=== PATIENT | male | born 1990 | race Caucasian/White ===

== ENCOUNTER 2019-08-07 03:54 | Observation (INO) ==
[2019-08-07] MEDS ORDERED: Naloxone 0.4 MG/ML INJ IVP PRN (08:42)
[2019-08-07 11:06] LABS: Amphetamine Screen,Urine Positive ng/mL (Cutoff=1000); Barbiturate Screen,Urine Negative ng/mL (Cutoff=200); Benzodiazepines Screen,Urine Negative ng/mL (Cutoff=200); Cannabinoid Screen,Urine Positive ng/mL (Cutoff = 50); Cocaine Screen,Urine Negative ng/mL (Cutoff= 300); Opiate Screen,Urine Negative ng/mL (Cutoff=300); Phencyclidine Screen,Urine Negative ng/mL (Cutoff=25)
[2019-08-07] MEDS: Budesonide/Formoterol 160/4.5 1 PUFF INH IH SCH ×2 (14:52→21:14)
[2019-08-07] MEDS: Ipratropium/Albuterol Neb 3 ML IH SCH ×4 (14:52→21:14)
[2019-08-07 17:38] LABS: INR 1.3; Prothrombin Time 15.1 Seconds (9.4-12.1)
[2019-08-07 17:41] LABS: Activated Partial Thrombo Time 28.9 Seconds (26.0-36.0)
[2019-08-07 17:54] LABS: Albumin 4.8 g/dL (3.5-5.7); Albumin/Globulin Ratio 1.7 (1.1-2.2); Bilirubin,Direct 0.2 mg/dL (0.0-0.2); Bilirubin,Indirect 0.5 mg/dL (0.0-1.0); Bilirubin,Total 0.7 mg/dL (0.3-1.0); Globulin 2.8 g/dL (2.4-3.5); Total Protein 7.6 g/dL (6.4-8.9)
[2019-08-07] MEDS: *HR* Heparin 5,000 UNIT/ML VIAL SQ SCH (17:57)
[2019-08-07] MEDS: MethylPREDNISolone 40 MG/ML VIAL IVP SCH (17:58)
[2019-08-08] MEDS ORDERED: Azithromycin 500 MG in 0.9 % Sodium Chloride 250 ML IVPB SCH
[2019-08-08] MEDS: Ipratropium/Albuterol Neb 3 ML IH SCH ×3 (00:02→07:54)
[2019-08-08] MEDS: cefTRIAXone 1,000 MG in Water for inj. (sterile) 10 ML IVP SCH ×2 (00:33→08:45)
[2019-08-08] MEDS: *HR* Heparin 5,000 UNIT/ML VIAL SQ SCH (05:21)
[2019-08-08] MEDS: MethylPREDNISolone 40 MG/ML VIAL IVP SCH (05:22)
[2019-08-08 05:42] LABS: Basophils % 0.1 %; Hematocrit 45.1 % (37.5-50.1); Hemoglobin 15.8 g/dL (12.9-16.9); Immature Granulocytes % 0.3 % (0-4); Lymphocytes % 14.7 %; Mean Corpuscular Hemoglobin 29.6 pg (28.0-33.3); Mean Corpuscular Volume 84.6 fL (83.0-100.0); Mean Platelet Volume 9.9 fL (9.4-12.4); Monocytes # 0.7 K/mcL (0.0-1.3); Neutrophils # 10.8 K/mcL (1.6-8.9); Platelet Count 390 K/mcL (140-400); Red Blood Count 5.33 M/mcL (4.19-5.50); Segmented Neutrophils % 79.9 %; White Blood Count 13.5 K/mcL (4.3-11.1)
[2019-08-08 06:05] LABS: BUN/Creatinine Ratio 22 (6-26); Blood Urea Nitrogen 18 mg/dL (6-20); Calcium 9.5 mg/dL (8.6-10.3); Carbon Dioxide 26 mEq/L (23-29); Chloride 103 mEq/L (98-107); Glucose 112 mg/dL (70-105); Osmolality,Calculated 293 (280-300); Potassium 4.4 mEq/L (3.5-5.1); Sodium 140 mEq/L (136-145); eGFR For African Americans > 60 (> 60); eGFR For Non-African Americans > 60 (> 60)
[2019-08-08 06:34] LABS: Hepatitis B Surface Antigen Nonreactive (Nonreactive)
[2019-08-08 06:55] VITALS: BP 109/70
[2019-08-08 07:03] LABS: Hepatitis C Virus Antibody Nonreactive (Nonreactive)
[2019-08-08 07:04] LABS: Hepatitis B Core IgM Nonreactive (Nonreactive)
[2019-08-08 07:05] LABS: Hepatitis A Antibody IgM Nonreactive (Nonreactive)
[2019-08-08] MEDS: Budesonide/Formoterol 160/4.5 1 PUFF INH IH SCH (07:56)
[2019-08-08] MEDS ORDERED: Ringers Solution, Lactated 1,000 ML IVC SCH (08:15)
[2019-08-08] MEDS ORDERED: Ipratropium/Albuterol Neb 3 ML IH PRN (11:18)
== END 2019-08-08 13:36 | disposition home or self-care (01) ==
LOC: 2NENU
PROVIDERS: ADMIT Family Medicine; ATTEND Family Medicine